=== PATIENT | female | born 1995 | race Caucasian/White ===

== ENCOUNTER 2016-12-25 09:14 | Emergency (ER) | payer BC, OTHER ==
[~2016-12-25] VITALS: Ht 165.1 cm; Wt 59.0 kg
[~2016-12-25 09:14] MED LIST: TRAM-42 PO
[2016-12-25 10:00] LABS: BILIRUBIN,URINE NEGATIVE (NEGATIVE); KETONES,URINE NEGATIVE (NEGATIVE); LEUKOCYTE ESTERASE ,URINE NEGATIVE (NEGATIVE); NITRITE,URINE NEGATIVE (NEGATIVE); PH,URINE 6.5 (5-9); PROTEIN,URINE NEGATIVE (NEGATIVE); UROBILINOGEN,URINE NORMAL (NORMAL)
[2016-12-25] MEDS ORDERED: POLY119P5 PO ×2 (10:20→10:51)
--- NOTE | 2016-12-25 10:21 | ED Abdominal Pain ---
General Chief Complaint: Abdominal/GI Problems Stated Complaint: PAIN IN LOWER ABD Nursing Triage Note: PT REPORTS SUPRAPUBIC ABD PAIN SINCE THIS AM. SHE DENIES N/V/D OR ANY URINARY S/S. SHE REPORTS TAKING 3-ACETAMINOPHEN AT 0730 THIS AM WITH SOME RELIEF. Sepsis Screen: No Definite Risk Source of Information: Patient Exam Limitations: No Limitations History of Present Illness Time Seen By Provider: 09:23 Initial Comments This 21-year-old young lady presents to the emergency room with complaints of pain in the suprapubic area that started just this morning. The pain is crampy in nature and comes in waves. She was diaphoretic during these episodes. She left class early to return home to rest. Symptoms are now improved. She denies any nausea, vomiting, diarrhea, fever, dysuria, or vaginal discharge. She does have constipation and had some small pebble-like stools yesterday. She is sexually active but denies . Her last menstrual period started December 21. Allergies and Home Medications Allergies Coded Allergies: No Known Drug Allergies (Unverified , 12/17/15) Home Medications Polyethylene Glycol 3350 119 Gm Powder, 17 GM PO TID PRN for CONSTIPATION-1ST LINE, #1 Dissolve in 8-12 ounces of fluid Prescribed by: PANDA GAN on 12/25/16 1051 Tramadol HCl 50 Mg Tablet, 50 MG PO Q6H PRN for PAIN, #10 Prescribed by: PANDA GAN on 12/17/15 1139 Review of Systems Constitutional: see HPI EENTM: No Symptoms Reported Respiratory: No Symptoms Reported Cardiovascular: No Symptoms Reported Gastrointestinal: See HPI Genitourinary: No Symptoms Reported Musculoskeletal: no symptoms reported Skin: no symptoms reported Psychiatric/Neurological: No Symptoms Reported Endocrine: No Symptoms Reported Hematologic/Lymphatic: No Symptoms Reported Past Vpgewwb-Oiyjwh-Idxilo Hx Patient Social History Alcohol Use: Denies Use Recreational Drug Use: No Smoking Status: Never a Smoker 2nd Hand Smoke Exposure: No Recent Foreign Travel: No Contact w/Someone Who Travel: No Recent Infectious Disease Expo: No Recent Hopitalizations: No Physical Abuse: No Sexual Abuse: No Surgeries History of Surgeries: Yes (wisdom teeth extractions) Surgeries: Abdominal (EGD), Orthopedic (Anterior cruciate ligament repair), Tonsillectomy Respiratory History of Respiratory Disorde: No Cardiovascular History of Cardiac Disorders: No Neurological History of Neurological Disord: No Reproductive System : No Last Menstrual Period: Dec 21, 2016 Gastrointestinal History of Gastrointestinal Di: Yes Gastrointestinal Disorders: Gastroesophageal Reflux (And esophagitis), Ulcer Musculoskeletal History of Musculoskeletal Dis: No Endocrine History of Endocrine Disorders: No HEENT History of HEENT Disorders: No Cancer History of Cancer: No Psychosocial History of Psychiatric Problem: No Suicide Risk Score: 0 Family Medical History Significant Family History: GI Disease, Hypertension Physical Exam Vital Signs VS - Last 72 Hours, by Label 12/25/16 12/25/16 09:30 10:37 Temp 98.3 98.3 Pulse 70 70 Resp 16 16 B/P (MAP) 122/70 Pulse Ox 99 99 O2 Delivery Room Air Capillary Refill : Less Than 3 Seconds General Appearance: WD/WN, no apparent distress HEENT: normal ENT inspection Respiratory: normal breath sounds, no respiratory distress, no accessory muscle use Cardiovascular: regular rate, rhythm, no edema Gastrointestinal: normal bowel sounds, non tender, soft 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, no motor/sensory deficits, alert, normal mood/affect, oriented x 3 Skin: normal color, warm/dry Progress/Results/Core Measures Results/Orders Lab Results Laboratory Tests Test 12/25/16 09:45 Range/Units Urine Color YELLOW Urine Clarity SLIGHTLY CLOUDY Urine pH 6.5 5-9 Urine Specific [place] 1.015 L 1.016-1.022 Urine Protein NEGATIVE NEGATIVE Urine Glucose (UA) NEGATIVE NEGATIVE Urine Ketones NEGATIVE NEGATIVE Urine Nitrite NEGATIVE NEGATIVE Urine Bilirubin NEGATIVE NEGATIVE Urine Urobilinogen NORMAL NORMAL MG/DL Urine Leukocyte Esterase NEGATIVE NEGATIVE Urine RBC (Auto) NEGATIVE NEGATIVE Urine RBC NONE /HPF Urine WBC NONE /HPF Urine Squamous Epithelial Cells 5-10 /HPF Urine Crystals NONE /LPF Urine Bacteria NEGATIVE /HPF Urine Casts NONE /LPF Urine Mucus NEGATIVE /LPF Urine Culture Indicated NO Urine Test NEGATIVE NEGATIVE My Orders Orders - PANDA BAUTISTA MD Ua Culture If Indicated (12/25/16 09:23) Hcg,Qualitative Urine (12/25/16 09:56) Vital Signs/I&O Vital Sign - Last 12Hours 12/25/16 12/25/16 09:30 10:37 Temp 98.3 98.3 Pulse 70 70 Resp 16 16 B/P (MAP) 122/70 Pulse Ox 99 99 O2 Delivery Room Air Blood Pressure Mean: 87 Progress Note : Time: 10:16 Progress Note Patient is feeling much better now. Urine test was negative. Patient was offered KUB to evaluate for constipation versus treating with MiraLAX and dietary changes. Patient wishes to forego the x-ray at this time and empirically treat for constipation. Departure Impression Impression: Primary Impression: Lower abdominal pain Additional Impressions: Constipation Qualified Codes: K59.00 - Constipation, unspecified Pelvic cramping Disposition: 01 HOME, SELF-CARE Condition: Improved Departure-Patient Inst. Decision time for Depature: 10:15 Referrals: NO,LOCAL PHYSICIAN (PCP/Family) Primary Care Physician Patient Instructions: Acute Abdomen (Belly Pain), Adult (DC), Constipation, Adult (DC) Add. Discharge Instructions: Drink plenty of clear liquids. Use MiraLAX (polyethylene glycol) 2 or 3 times daily until a good bowel movement is produced. MiraLAX should be dissolved in 8 -12 ounces of liquid. Consume primarily a clear liquid diet which would include Jell-O, chicken broth, etc. throughout the day today. Gradually advance your diet with small quantities of food as tolerated. Eat plenty of fruits, vegetables, and whole grains. Avoid excessive meats, dairy products, processed foods, fast foods, etc. Return to care if symptoms worsen. You may use Tylenol (acetaminophen) up to 1000 mg every 6 hours as needed. Add NSAID medications such as ibuprofen or naproxen sparingly as needed. Take NSAIDs with food or milk to avoid stomach irritation. All discharge instructions reviewed with patient and/or family. Voiced understanding. Scripts Polyethylene Glycol 3350 (Miralax) 119 Gm Powder 17 GM PO TID Y for CONSTIPATION-1ST LINE, #1 EA Dissolve in 8-12 ounces of fluid Prov: PANDA BAUTISTA MD 12/25/16 Work/School Note: School/Childcare Release Date Seen in the Emergency Department: Dec 25, 2016 Time Dismissed from Emergency Department: 10:45 Return to School: Dec 25, 2016 PANDA BAUTISTA MD Dec 25, 2016 10:21
[2016-12-25 10:37] VITALS: BP 122/70
== END 2016-12-25 10:37 | disposition home or self-care (01) ==
LOC: EDUNIT# 09:14 → ER 09:18
DX: K59.00 Constipation, unspecified (principal); K21.0 Gastro-esophageal reflux disease with esophagitis; Z87.11 Personal history of peptic ulcer disease; Z90.89 Acquired absence of other organs; Z98.890 Other specified postprocedural states
CPT/HCPCS: 81000; 84703; 99282